=== PATIENT | female | born 1965 ===

== ENCOUNTER 2017-07-18 12:40 | Emergency (ER) | payer OTHER ==
[~2017-07-18] VITALS: Ht 157.5 cm; Wt 59.0 kg
[~2017-07-18 12:40] MED LIST: DIA5 PO; ESTR1PAT75 TD; HYDR-4309 PO; IBU200 PO; INHALER PO; OMEP-153 PO; PANT40TA65 PO; RANI-318 PO
--- NOTE | 2017-07-18 12:47 | ER Report ---
History and Physical Time Seen By MD: 12:46 Hx. of Stated Complaint: 2 DAYS OF CHEST PAIN AND SHORTNESS OF BREATH HPI/ROS CHIEF COMPLAINT: Left shoulder pain, chest pain HISTORY OF PRESENT ILLNESS: 51-year-old female patient presents to emergency room with complaint of left shoulder pain, chest pain. Patient states that shoulder pains been going on for the past 2 days. Patient states that pain seems to radiate down the left arm cause her to have some numbness and tingling. Patient states that she's had some shortness of breath as well. She denies having any fevers, chills, nausea, vomiting or diarrhea. Patient states that she ate just a little bit ago and then developed chest pain. Patient states that she has not taken any medication for this. States is nothing seems to make the pain in the left shoulder better or worse. REVIEW OF SYSTEMS: Respiratory: No cough, no dyspnea. Cardiovascular: As noted above Gastrointestinal: No vomiting, no abdominal pain. Musculoskeletal: No back pain. Allergies: Coded Allergies: No Known Allergies (Verified Allergy, Mild, 07/25/16) Home Meds Active Scripts Omeprazole (OMEPRAZOLE) 40 Mg Capsule.dr, 40 MG PO QDAY, #30 CAP Prov:LORELEI SLATER 07/18/17 Ketorolac Tromethamine (KETOROLAC TROMETHAMINE) 10 Mg Tab, 10 MG PO Q6H, #20 TAB Prov:LORELEI SLATER 07/18/17 Cyclobenzaprine Hcl (CYCLOBENZAPRINE HCL) 10 Mg Tablet, 5-10 MG PO TID Y for MUSCLE SPASMS, #30 TAB Prov:LORELEI SLATER 07/18/17 Reported Medications Multivitamin/Iron/Folic Acid (CENTRUM COMPLETE MULTIVIT TAB) 1 Each Tablet, 1 EACH PO QDAY 07/18/17 Discontinued Reported Medications Estradiol (VIVELLE-DOT 0.025 MG) 1 Each Patch.tdsw, 1 EACH TD 2XW, PATCH.BWK 07/25/16 Ranitidine Hcl (RANITIDINE HCL) 150 Mg Tablet, 150 MG PO BID 07/25/16 Ibuprofen (Motrin) 200 Mg Tab, 200 MG PO PRN, #20 12/27/11 Discontinued Scripts Pantoprazole Sodium (PANTOPRAZOLE SODIUM) 40 Mg Tablet.dr, 40 MG PO QDAY, #60 TAB.SR 3 Refills Prov:NACHTIGAL,FARZAD MD 08/01/16 Past Medical/Surgical History Patient has a past medical history of pneumonia, reflux, hiatal hernia, cervical fusion, alcohol use. Patient has surgical history of knee surgery 3, foot surgery, hysterectomy, C- section. Patient has a family medical history of cancer, CAD. Reviewed Nurses Notes: Yes Hx Smoking: No Smoking Status: Never Smoker Hx Substance Use Disorder: No Hx Alcohol Use: Yes Constitutional Vital Sign - Last 24 Hours 07/18/17 07/18/17 07/18/17 07/18/17 12:42 12:43 12:55 13:05 Temp 98.8 Pulse 85 82 Resp 20 B/P (MAP) 125/86 (99) 125/86 132/84 (100) Pulse Ox 99 99 O2 Delivery Room Air 07/18/17 07/18/17 07/18/17 07/18/17 13:10 13:25 13:30 13:40 Pulse 79 77 78 Resp 19 21 20 B/P (MAP) 121/82 (95) Pulse Ox 98 97 97 07/18/17 07/18/17 07/18/17 07/18/17 13:45 13:55 14:00 14:10 Pulse 74 73 Resp 11 19 B/P (MAP) 120/81 (94) 106/78 (87) Pulse Ox 99 97 07/18/17 07/18/17 07/18/17 07/18/17 14:15 14:25 14:30 14:35 Pulse 74 72 Resp 19 17 B/P (MAP) 107/72 (84) 109/72 (84) Pulse Ox 98 97 07/18/17 07/18/17 07/18/17 07/18/17 14:45 14:50 15:00 15:05 Pulse ??? 72 Resp 17 B/P (MAP) 97/69 (78) 116/81 (93) Pulse Ox 96 07/18/17 07/18/17 15:15 15:20 Pulse 75 Resp 28 B/P (MAP) 119/83 (95) Pulse Ox 96 Physical Exam General Appearance: The patient is alert, has no immediate need for airway protection and no current signs of toxicity. ENT: Tympanic membranes are pearly-young, auditory canals are patent, mucous membranes are moist. Respiratory: Chest is mildly tender in the left upper chest, lungs are clear to auscultation. Cardiac: regular rate and rhythm Gastrointestinal: Abdomen is soft and non tender, no masses, bowel sounds normal. Musculoskeletal: Neck: Neck is supple and non tender. Extremities have full range of motion and are non tender. Patient does have tenderness to the muscles as well as tightness to the left trapezius, around the left scapula, left arm, mild tenderness to palpation of left chest. Skin: No rashes or lesions. DIFFERENTIAL DIAGNOSIS: After history and physical exam differential diagnosis was considered for chest pain including but not limited to myocardial ischemia, pericarditis pulmonary embolus, chest wall pain, pleural inflammation and pulmonary infectious causes. Included in this differential is reflux, muscles tightness. Medical Decision Making Data Points Result Diagram: 07/18/17 1300 07/18/17 1300 Laboratory Hematology Test 07/18/17 13:00 Red Blood Count 4.46 M/uL (4.17-5.56) Mean Corpuscular Volume 95.6 fL (80.0-96.0) Mean Corpuscular Hemoglobin 32.8 pg (26.0-33.0) Mean Corpuscular Hemoglobin Concent 34.3 g/dL (32.0-36.0) Red Cell Distribution Width 13.4 % (11.5-14.5) Mean Platelet Volume 8.6 fL (7.2-11.1) Neutrophils (%) (Auto) 59.4 % (39.4-72.5) Lymphocytes (%) (Auto) 30.9 % (17.6-49.6) Monocytes (%) (Auto) 7.9 % (4.1-12.4) Eosinophils (%) (Auto) 1.0 % (0.4-6.7) Basophils (%) (Auto) 0.8 % (0.3-1.4) Nucleated RBC Relative Count (auto) 0.0 /100WBC Neutrophils # (Auto) 2.7 K/uL (2.0-7.4) Lymphocytes # (Auto) 1.4 K/uL (1.3-3.6) Monocytes # (Auto) 0.4 K/uL (0.3-1.0) Eosinophils # (Auto) 0.0 K/uL (0.0-0.5) Basophils # (Auto) 0.0 K/uL (0.0-0.1) Nucleated RBC Absolute Count (auto) 0.00 K/uL Sodium Level 138 mmol/L (137-145) Potassium Level 3.6 mmol/L (3.5-5.0) Chloride Level 103 mmol/L (98-107) Carbon Dioxide Level 25 mmol/L (22-31) Blood Urea Nitrogen 13 mg/dl (7-18) Creatinine 0.60 mg/dl (0.52-1.04) Glomerular Filtration Rate Calc > 60.0 Random Glucose 92 mg/dl (75-110) Calcium Level 9.1 mg/dl (8.4-10.2) Total Bilirubin 0.7 mg/dl (0.2-1.3) Aspartate Amino Transf (AST/SGOT) 26 U/L (0-35) Alanine Aminotransferase (ALT/SGPT) 33 U/L (0-56) Alkaline Phosphatase 95 U/L (0-126) Troponin I < 0.012 ng/ml Total Protein 7.1 gm/dl (6.3-8.2) Albumin 4.0 g/dl (3.5-5.0) Chemistry Test 07/18/17 13:00 White Blood Count 4.6 k/uL (4.5-11.0) Red Blood Count 4.46 M/uL (4.17-5.56) Hemoglobin 14.6 g/dL (12.0-16.0) Hematocrit 42.6 % (34.0-47.0) Mean Corpuscular Volume 95.6 fL (80.0-96.0) Mean Corpuscular Hemoglobin 32.8 pg (26.0-33.0) Mean Corpuscular Hemoglobin Concent 34.3 g/dL (32.0-36.0) Red Cell Distribution Width 13.4 % (11.5-14.5) Platelet Count 199 K/uL (150-450) Mean Platelet Volume 8.6 fL (7.2-11.1) Neutrophils (%) (Auto) 59.4 % (39.4-72.5) Lymphocytes (%) (Auto) 30.9 % (17.6-49.6) Monocytes (%) (Auto) 7.9 % (4.1-12.4) Eosinophils (%) (Auto) 1.0 % (0.4-6.7) Basophils (%) (Auto) 0.8 % (0.3-1.4) Nucleated RBC Relative Count (auto) 0.0 /100WBC Neutrophils # (Auto) 2.7 K/uL (2.0-7.4) Lymphocytes # (Auto) 1.4 K/uL (1.3-3.6) Monocytes # (Auto) 0.4 K/uL (0.3-1.0) Eosinophils # (Auto) 0.0 K/uL (0.0-0.5) Basophils # (Auto) 0.0 K/uL (0.0-0.1) Nucleated RBC Absolute Count (auto) 0.00 K/uL Glomerular Filtration Rate Calc > 60.0 Calcium Level 9.1 mg/dl (8.4-10.2) Total Bilirubin 0.7 mg/dl (0.2-1.3) Aspartate Amino Transf (AST/SGOT) 26 U/L (0-35) Alanine Aminotransferase (ALT/SGPT) 33 U/L (0-56) Alkaline Phosphatase 95 U/L (0-126) Troponin I < 0.012 ng/ml Total Protein 7.1 gm/dl (6.3-8.2) Albumin 4.0 g/dl (3.5-5.0) EKG/Imaging EKG Interpretation 12 lead EKG: Rhythm: normal sinus rhythm with a ventricular rate of 78 bpm [place]: normal QRS: normal ST segments: normal Imaging Exam type: ARTERIAL UPPER EXT LEFT History: coolness, left shoulder discomfort Comparison: None. Findings: The left upper extremity arteries were imaged as follows: The left subclavian artery down is trace triphasic flow with a peak stalk velocity 100 cm/s. The left axillary artery demonstrates triphasic flow with a peak systolic velocity of 99.6 centers per second. The left brachial artery proximally demonstrates triphasic flow with peak stalk velocity of 63 cm/s. The mid left brachial artery demonstrates triphasic flow with a peak stalk velocity of 74 cm/s. The distal left brachial artery demonstrates triphasic flow in place O+ 62 cm/s. The left ulnar artery demonstrates biphasic flow and a peak systolic velocity of 27 cm/s distally. The proximal left ulnar artery demonstrates biphasic flow and a peak systolic velocity of 27 cm/s. The distal left radial artery demonstrates biphasic flow with peak systolic velocity of 18 cm/s. The proximal left radial artery demonstrates biphasic flow and a peak systolic velocity of 11 cm/s. IMPRESSION: 1. Unremarkable arterial duplex scan of the left upper extremity Report Dictated By: Lucia Posey MD at 07/18/2017 3:57 PM Report E-Signed By: Lucia Posey MD at 07/18/2017 4:01 PM INDICATION: Chest Pain. DATE: 07/18/2017 2:03 PM. TECHNIQUE: SHOULDER MIN 2 VIEWS LEFT, CHEST PA AND LAT COMPARISON: None FINDINGS: Left shoulder: Normal alignment without evidence of fracture or dislocation. No significant degenerative findings. Anterior cervical fusion hardware is incompletely imaged. CHEST: Heart size is normal. No effusion, consolidation, or pneumothorax. Mild hyperinflation. IMPRESSION: No acute abnormality of the left shoulder. No acute findings in the chest. Report Dictated By: Arabella Pollack MD at 07/18/2017 2:03 PM Report E-Signed By: Arabella Pollack MD at 07/18/2017 2:09 PM INDICATION: Chest Pain. DATE: 07/18/2017 2:03 PM. TECHNIQUE: SHOULDER MIN 2 VIEWS LEFT, CHEST PA AND LAT COMPARISON: None FINDINGS: Left shoulder: Normal alignment without evidence of fracture or dislocation. No significant degenerative findings. Anterior cervical fusion hardware is incompletely imaged. CHEST: Heart size is normal. No effusion, consolidation, or pneumothorax. Mild hyperinflation. IMPRESSION: No acute abnormality of the left shoulder. No acute findings in the chest. Report Dictated By: Arabella Pollack MD at 07/18/2017 2:03 PM Report E-Signed By: Arabella Pollack MD at 07/18/2017 2:09 PM ED Course/Re-evaluation ED Course 07/18/2017 2:19:13 pm on reevaluation the left arm is markedly cooler to the touch. It seems to go all the way up to the shoulder. We will go ahead and do an arterial Doppler of the left arm. Patient was admitted to an exam room, history and physical were obtained. Differential diagnoses were considered. On examination lungs are clear, heart was regular, abdomen soft nontender. Patient does have tightness and tenderness to the muscles of the left trapezius, left scapula. And x-rays done of the left shoulder, chest x-ray, CBC, CMP, troponin, EKG. EKG showed a normal sinus rhythm. Chest x-ray was negative, shoulder x-ray was negative. Labs were unremarkable. I discussed findings with the patient and her daughter. On discussing the findings I was going to discharge patient and treat her for muscle spasms. Her daughter asked why her left arm was cooler than the right. On examination the left arm is markedly cooler to the touch. An ultrasound of the artery was done. After the ultrasound was done the patient stated that she needed to be somewhere 4:00 and wanted to be discharged. We did not have the findings at that time and went ahead and discharge her. I informed her that we will go ahead and call her with the results there is anything different than what the cytology technologist saw. Patient verbalized understanding and agreement. Decision to Disposition Date: Jul 18, 2017 Decision to Disposition Time: 15:27 Depart Departure Latest Vital Signs Vital Signs Date Time Temp Pulse Resp B/P (MAP) Pulse Ox O2 Delivery O2 Flow Rate FiO2 07/18/17 15:20 75 28 96 07/18/17 15:15 119/83 (95) 07/18/17 12:43 98.8 Room Air Impression: Primary Impression: Muscle spasm of left shoulder area Additional Impression: GERD (gastroesophageal reflux disease) Condition: Improved Disposition: HOME OR SELF-CARE Referrals: EUNICE LYMAN DO (PCP) Frank Garrett Omeprazole (OMEPRAZOLE) 40 Mg Capsule.dr 40 MG PO QDAY, #30 CAP Prov: LORELEI SLATER 07/18/17 Ketorolac Tromethamine (KETOROLAC TROMETHAMINE) 10 Mg Tab 10 MG PO Q6H, #20 TAB Prov: LORELEI SLATER 07/18/17 Cyclobenzaprine Hcl (CYCLOBENZAPRINE HCL) 10 Mg Tablet 5-10 MG PO TID Y for MUSCLE SPASMS, #30 TAB Prov: LORELEI SLATER 07/18/17 Patient Instructions: Gastroesophageal Reflux Disease (ED), Muscle Spasm (ED) Additional Instructions: Follow up with your primary care provider in the next week. Get plenty of rest. Increase fluid intake. Rest the left shoulder as much as possible. Return to the ER if condition worsens. Follow up with [facility] if pain persists. Avoid heavy lifting. Problem Qualifiers Additional Impression: GERD (gastroesophageal reflux disease) Esophagitis presence: without esophagitis Qualified Codes: K21.9 - Gastro- esophageal reflux disease without esophagitis LORELEI SLATER Jul 18, 2017 12:47
[2017-07-18] MEDS ORDERED: ASPIRIN 81 MG CHEW PO ONE (12:55)
[2017-07-18] MEDS ORDERED: ORPHENADRINE 60MG/2ML INJ IVP ONE (12:55)
--- NOTE | 2017-07-18 13:01 | EKG ---
[facility] PATIENT NAME: GARRICK GUTIÉRREZ : [id number] MR: [id number] V: [id number] EXAM DATE: ORDERING PHYSICIAN: LORELEI SLATER TECHNOLOGIST: LEÓN Malhotra Reason : CHEST PAIN Blood Pressure : / mmHG Vent. Rate : 078 BPM Atrial Rate : 078 BPM P-R Int : 140 ms QRS Dur : 088 ms QT Int : 360 ms P-R-T Axes : 075 082 084 degrees QTc Int : 410 ms Normal sinus rhythm Nonspecific T wave abnormality Abnormal ECG No previous ECGs available Confirmed by ZULY MANUEL ([id number]) on 07/18/2017 1:53:08 PM Referred By: LORELEI Confirmed By:ZULY MANUEL
[2017-07-18] MEDS ORDERED: MULT-768 PO (13:06)
[2017-07-18 13:16] LABS: PLATELET COUNT, AUTOMATED 199 K/uL (150-450)
--- NOTE | 2017-07-18 14:12 | RADIOLOGY IMAGING REPORT ---
FACILITY: [facility] - [place] PATIENT NAME: Jackie Colby : 1965 MR: [id number] V: [id number] EXAM DATE: ORDERING PHYSICIAN: LORELEI SLATER TECHNOLOGIST: Location: [facility] - [place] Patient: Jackie Colby : 1965 Visit/Account:[id number] Date of Sevice: 07/18/2017 INDICATION: Chest Pain. DATE: 07/18/2017 2:03 PM. TECHNIQUE: SHOULDER MIN 2 VIEWS LEFT, CHEST PA AND LAT COMPARISON: None FINDINGS: Left shoulder: Normal alignment without evidence of fracture or dislocation. No significant degenerat treva findings. Anterior cervical fusion hardware is incompletely imaged. CHEST: Heart size is normal. No effusion, consolidation, or pneumothorax. Mild hyperinflation. IMPRESSION: No acute abnormality of the left shoulder. No acute findings in the chest. Report Dictated By: Arabella Pollack MD at 07/18/2017 2:03 PM Report E-Signed By: Arabella Pollack MD at 07/18/2017 2:09 PM WSN:[id number]
--- NOTE | 2017-07-18 14:12 | RADIOLOGY IMAGING REPORT ---
FACILITY: [facility] - [place] PATIENT NAME: Jackie Colby : 1965 MR: [id number] V: [id number] EXAM DATE: ORDERING PHYSICIAN: LORELEI SLATER TECHNOLOGIST: Location: [facility] - [place] Patient: Jackie Colby : 1965 Visit/Account:[id number] Date of Sevice: 07/18/2017 INDICATION: Chest Pain. DATE: 07/18/2017 2:03 PM. TECHNIQUE: SHOULDER MIN 2 VIEWS LEFT, CHEST PA AND LAT COMPARISON: None FINDINGS: Left shoulder: Normal alignment without evidence of fracture or dislocation. No significant degenerat treva findings. Anterior cervical fusion hardware is incompletely imaged. CHEST: Heart size is normal. No effusion, consolidation, or pneumothorax. Mild hyperinflation. IMPRESSION: No acute abnormality of the left shoulder. No acute findings in the chest. Report Dictated By: Arabella Pollack MD at 07/18/2017 2:03 PM Report E-Signed By: Arabella Pollack MD at 07/18/2017 2:09 PM WSN:[id number]
[2017-07-18 15:15] VITALS: BP 119/83
[2017-07-18] MEDS ORDERED: KET10 PO (15:26)
[2017-07-18] MEDS ORDERED: CYCL10TA29 PO (15:26)
[2017-07-18] MEDS ORDERED: OMEP40CA48 PO (15:26)
--- NOTE | 2017-07-18 16:04 | RADIOLOGY IMAGING REPORT ---
FACILITY: [facility] PATIENT NAME: Jackie Colby : 1965 MR: [id number] V: [id number] EXAM DATE: ORDERING PHYSICIAN: LORELEI SLATER TECHNOLOGIST: Location: [facility] - [place] Patient: Jackie Colby : 1965 Visit/Account:[id number] Date of Sevice: 07/18/2017 Exam type: ARTERIAL UPPER EXT LEFT History: coolness, left shoulder discomfort Comparison: None. Findings: The left upper extremity arteries were imaged as follows: The left subclavian artery down is trace triphasic flow with a peak stalk velocity 100 cm/s. The left axillary artery demonstrates triphasic flow with a peak systolic velocity of 99.6 centers pe r second. The left brachial artery proximally demonstrates triphasic flow with peak stalk velocity of 63 cm/s. The mid left brachial artery demonstrates triphasic flow with a peak stalk velocity of 74 cm/s. The distal left brachial artery demonstrates triphasic flow in place O+ 62 cm/s. The left ulnar artery demonstrates biphasic flow and a peak systolic velocity of 27 cm/s distally. The proximal left ulnar artery demonstrates biphasic flow and a peak systolic velocity of 27 cm/s. The distal left radial artery demonstrates biphasic flow with peak systolic velocity of 18 cm/s. The proximal left radial artery demonstrates biphasic flow and a peak systolic velocity of 11 cm/s. IMPRESSION: 1. Unremarkable arterial duplex scan of the left upper extremity Report Dictated By: Lucia Posey MD at 07/18/2017 3:57 PM Report E-Signed By: Lucia Posey MD at 07/18/2017 4:01 PM WSN:[email or web address]
== END 2017-07-18 15:38 | disposition home or self-care (01) ==
LOC: ER 12:40
DX: M62.838 Other muscle spasm (principal); K21.9 Gastro-esophageal reflux disease without esophagitis
CPT/HCPCS: 36415; 71046; 73030; 84484; 85025; 93005; 93931; 96374; 99284; J2360; 82040; 82247; 82310; 82374; 82435; 82565; 82947; 84075; 84132; 84155; 84295; 84450; 84460; 84520

== ENCOUNTER → 2018-05-14 | Outpatient (CLI) | payer OTHER ==
[~2018-05-14] MED LIST changes: +CYCL10TA29 PO; -HYDR-4309 PO; +HYDR-653 PO; +KET10 PO; +MULT-768 PO; +OMEP40CA48 PO
--- NOTE | 2018-05-15 10:07 | RADIOLOGY IMAGING REPORT ---
FACILITY: [facility] PATIENT NAME: GARRICK GUTIÉRREZ : [id number] MR: [id number] V: [id number] EXAM DATE: [id number] ORDERING PHYSICIAN: EUNICE LYMAN TECHNOLOGIST: Joanna Stephen PROCEDURE:BILATERAL DIGITAL SCREENING MAMMOGRAM WITH CAD ASSISTED INTERPRETATION & 3D TOMOSYNTHESIS COMPARISON:Prior mammograms 04/03/17, [facility] to 06/17/2012. INDICATIONS:SCREENING FINDINGS: Breast parenchyma is heterogeneously dense. There are no mammographic findings concerning for malignancy. No significant interval change. DIAGNOSTIC CATEGORY 1--NEGATIVE. RECOMMENDATIONS: ROUTINE MAMMOGRAM AND CLINICAL EVALUATION IN 1 YR. IMPRESSION: BIRADS 1: Negative. Dictated by: Quique Escoto on 05/15/2018 at 8:56 Transcribed by: ARUN on 05/15/2018 at 9:36 Approved by: Quique Escoto on 05/15/2018 at 10:06 [facility]
== END ==
LOC: MAMO 02:02
PROVIDERS: ATTEND Family Medicine
DX: Z12.31 Encounter for screening mammogram for malignant neoplasm of breast (principal)
CPT/HCPCS: 77063; 77067

== ENCOUNTER 2018-06-17 01:42 | Day surgery (SDC) | payer OTHER ==
[~2018-06-17] VITALS: Ht 160 cm; Wt 56.7 kg
[~2018-06-17 01:42] MED LIST changes: +HORMONE; +LORA10CA3 PO
[2018-06-17] MEDS ORDERED: PROPOFOL EMUL(*) 10MG/ML 20 ML 60 ML ONE (08:48)
[2018-06-17] MEDS ORDERED: LIDOCAINE MPF 1% 5 ML VIAL ONE (08:48)
[2018-06-17] MEDS ORDERED: LIDOCAINE/SOD BICARB 8.4% SYR ID ONE (10:00)
[2018-06-17] MEDS ORDERED: NORMOSOL R SOLN(*) 1000 ML BAG 1,000 ML IV PRN (10:00)
[2018-06-17 10:17] VITALS: BP 131/83
[2018-06-17 11:04] VITALS: BP 84/55
[2018-06-17 11:07] VITALS: BP 131/83
--- NOTE | 2018-06-17 11:08 | Short(Outpt) Discharge Summary ---
Discharge Summary Reason for Hosp/Final Diag: (1) GERD (gastroesophageal reflux disease) Status: Chronic Hospital Course & Plan: EGD with biopsies and colonoscopy with biopsies completed without problems. (2) Early satiety Status: Chronic (3) Alternating constipation and diarrhea Status: Chronic Departure Discharge to: Home, Self Care Discharge Instructions Home Meds Active Scripts Omeprazole (OMEPRAZOLE) 40 Mg Capsule.dr, 20 MG PO QDAY, #30 CAP Prov:ZULY GALICIA MD 05/29/18 Reported Medications [Hormone patch] No Conflict Check, 1 PATCH Q2Days 05/29/18 Loratadine (CLARITIN) 10 Mg Capsule, 10 MG PO DAILY, CAPSULE 05/27/18 Multivitamin/Iron/Folic Acid (CENTRUM COMPLETE MULTIVIT TAB) 1 Each Tablet, 1 EACH PO QDAY 07/18/17 Diet: Regular Activity: As Tolerated Special Instructions: Your upper endoscopy and your colonoscopy were both completed without any problems and your prep was excellent (Good Job!!). I biopsied your stomach, duodenum and colon. I will discuss these results with you when I see you back in my office. My office will call you in the next several days to schedule a follow up appointment with me. Your Marc Fundoplication appears intact. Problem Qualifiers (1) GERD (gastroesophageal reflux disease): Esophagitis presence: without esophagitis Qualified Codes: K21.9 - Gastro- esophageal reflux disease without esophagitis ZULY GALICIA MD Jun 17, 2018 11:08
[2018-06-17 11:14] VITALS: BP 102/76
[2018-06-17 11:30] VITALS: BP 116/71
== END 2018-06-17 12:15 | disposition home or self-care (01) ==
LOC: OR 01:42
PROVIDERS: ATTEND Surgery
DX: K21.9 Gastro-esophageal reflux disease without esophagitis (principal); R13.10 Dysphagia, unspecified; R68.81 Early satiety; R19.8 Other specified symptoms and signs involving the digestive system and abdomen; R63.4 Abnormal weight loss
CPT/HCPCS: 00813; 43239; 45380; 83516; 87077; 88305; J2001; J2704

== ENCOUNTER → 2018-06-19 | Outpatient (CLI) | payer OTHER ==
--- NOTE | 2018-06-19 10:01 | EKG ---
FACILITY: [facility] - [place] PATIENT NAME: GARRICK GUTIÉRREZ : [id number] MR: [id number] V: [id number] EXAM DATE: ORDERING PHYSICIAN: EUNICE LYMAN TECHNOLOGIST: CRISTINA Test Reason : ABNORMAL EKG Blood Pressure : / mmHG Vent. Rate : 071 BPM Atrial Rate : 071 BPM P-R Int : 154 ms QRS Dur : 090 ms QT Int : 384 ms P-R-T Axes : 062 075 101 degrees QTc Int : 417 ms Normal sinus rhythm T wave abnormality, consider anterior ischemia Abnormal ECG When compared with ECG of 18-JUL-2017 12:56, Nonspecific T wave abnormality now evident in Inferior leads T wave inversion more evident in Anterior leads Confirmed by ZULY MANUEL ([id number]) on 06/19/2018 5:33:24 PM Referred By: NURA Confirmed By:ZULY MANUEL
== END ==
LOC: CARD 08:44
PROVIDERS: ATTEND Family Medicine
DX: R94.31 Abnormal electrocardiogram [ECG] [EKG] (principal)
CPT/HCPCS: 93005

== ENCOUNTER → 2018-06-19 | Outpatient (CLI) | payer OTHER ==
[~2018-06-19] MED LIST changes: +BARIUM SULFATE 176 GM BTL PO ONE; +BARIUM SULFATE 340 GM POWD ONE
--- NOTE | 2018-06-19 14:39 | RADIOLOGY IMAGING REPORT ---
FACILITY: [facility] PATIENT NAME: Jackie Colby : 1965 MR: [id number] V: [id number] EXAM DATE: [id number] ORDERING PHYSICIAN: ZULY GALICIA TECHNOLOGIST: Location: [facility] - [place] Patient: Jackie Colby : 1965 Visit/Account:[id number] Date of Sevice: 06/19/2018 Exam type: UPPER GI W/SMALL BOWEL SERIES History: GERD, dysphasia Comparison: October 13, 2013. Findings: Double contrast upper GI series was performed with thick and thin barium and air contrast. There are postsurgical changes from hiatal hernia repair. Other was narrowing noted at the operative site alt beth a 12 mm barium tablet did pass through the opening into the stomach. No gastroesophageal reflu x was observed. The stomach duodenal bulb and duodenal C-loop appeared unremarkable. There is rapid transit of contrast through the small bowel. At the end of the upper GI series the barium had passe d through the small bowel to the to the left-sided colon. The terminal ileum appeared unremarkable.. Fluoroscopy dose area product was 927.56 micro-Harmon per meter squared IMPRESSION: 1. Post surgical changes from hiatal hernia repair with narrowing noted at the operative site althou gh 12 mm barium tablet did pass into the stomach No gastroesophageal reflux was observed Rapid transit of the barium through the small bowel which entered the left-sided colon by the end of the upper GI series alone. Report Dictated By: Lucia Posey MD at 06/19/2018 2:32 PM Report E-Signed By: Lucia Posey MD at 06/19/2018 2:36 PM WSN:[email or web address]
== END ==
LOC: RAD 03:26
PROVIDERS: ATTEND Surgery
DX: K21.9 Gastro-esophageal reflux disease without esophagitis (principal); R13.10 Dysphagia, unspecified
CPT/HCPCS: 74245

== ENCOUNTER → 2018-07-17 | Outpatient (CLI) | payer OTHER ==
[~2018-07-17] MED LIST changes: -BARIUM SULFATE 176 GM BTL PO ONE; -BARIUM SULFATE 340 GM POWD ONE
--- NOTE | 2018-07-20 11:31 | RT STRESS TEST REPORT ---
FACILITY: [facility] PATIENT NAME: GARRICK GUTIÉRREZ : [id number] MR: [id number] V: [id number] EXAM DATE: ORDERING PHYSICIAN: EUNICE LYMAN TECHNOLOGIST: Benjamin Acquisition Time: 2018-07-17 10:27:05 Total Exercise Time: 00:06:42 Test Indications: Abnormal ECG Medications: None Protocol: CARINE 2 Max HR: 166 BPM 98% of Pred: 169 BPM Max BP: 128/065 mmHG Max Work Load: 7.[address] Nathalia Lawrence 07-20-18 Noted by Jorge Luis Damico 07-20-18 Confirmed by NATHALIA LAWRENCE ([id number]), medical editor JORGE LUIS DAMICO ([id number]) on 07/20/2018 11:31:31 AM Referred By: Overread By: NATHALIA LAWRENCE
== END ==
LOC: RAD 00:20
PROVIDERS: ATTEND Family Medicine
DX: R94.31 Abnormal electrocardiogram [ECG] [EKG] (principal)
CPT/HCPCS: 93017; 93350